=== PATIENT | female | born 1965 | race Two or more races ===

== ENCOUNTER 2022-08-16 21:29 | Emergency (ER) | payer OTHER ==
[~2022-08-16] VITALS: Ht 157.5 cm; Wt 59.0 kg
[2022-08-16] MEDS ORDERED: METRONIDAZOLE500 MG PO (21:44)
[2022-08-16] MEDS ORDERED: WELLBUTRIN SR100 MG PO (21:45)
[2022-08-16] MEDS ORDERED: FLUCONAZOLE50 MG PO (21:45)
[2022-08-16] MEDS ORDERED: CRESTOR5 MG PO (21:45)
[2022-08-17] MEDS ORDERED: TAMS0.4C PO (00:02)
[2022-08-17] MEDS ORDERED: KETO10TA2 PO (00:02)
== END 2022-08-17 00:44 | disposition home or self-care (01) ==
LOC: ER 21:29
DX: N23 Unspecified renal colic (principal); Z88.0 Allergy status to penicillin

== ENCOUNTER 2022-08-19 22:35 | Emergency (ER) | payer OTHER ==
[~2022-08-19] VITALS: Ht 157.5 cm; Wt 59.0 kg
[~2022-08-19 22:35] MED LIST: CRESTOR5 MG PO; FLUCONAZOLE50 MG PO; KETO10TA2 PO; METRONIDAZOLE500 MG PO; TAMS0.4C PO; WELLBUTRIN SR100 MG PO
[2022-08-20] MEDS ORDERED: TAMS0.4C PO (05:20)
== END 2022-08-20 06:05 ==
LOC: ER 22:35
DX: R53.1 Weakness (principal); K57.30 Diverticulosis of large intestine without perforation or abscess without bleeding; N13.1 Hydronephrosis with ureteral stricture, not elsewhere classified; Z88.0 Allergy status to penicillin

== ENCOUNTER 2022-09-18 19:32 | Emergency (ER) | payer OTHER ==
[~2022-09-18] VITALS: Ht 157.5 cm; Wt 59.0 kg
== END 2022-09-19 00:01 | disposition home or self-care (01) ==
LOC: ER 19:32
DX: N20.1 Calculus of ureter (principal); Z88.6 Allergy status to analgesic agent